=== PATIENT | female | born 1945 | race Caucasian/White ===

== ENCOUNTER 2023-06-27 13:26 | Emergency (ER) | payer OTHER ==
[~2023-06-27] VITALS: Ht 160 cm; Wt 60.3 kg
[2023-06-27 14:00] VITALS: BP_SYST 175; PULSE 72; RESP 18; TEMP 97.7; O2SAT 100
[2023-06-27] MEDS ORDERED: DIPH25CA83 PO (17:00)
[2023-06-27 17:17] VITALS: BP_SYST 138; PULSE 81; RESP 20; TEMP 98.4; O2SAT 98
== END 2023-06-27 17:15 | disposition home or self-care (01) ==
LOC: SED 13:26
DX: S00.262A Insect bite (nonvenomous) of left eyelid and periocular area, initial encounter (principal); Z79.899 Other long term (current) drug therapy; W57.XXXA Bitten or stung by nonvenomous insect and other nonvenomous arthropods, initial encounter; Y93.89 Activity, other specified; Y92.89 Other specified places as the place of occurrence of the external cause; Y99.8 Other external cause status
CPT/HCPCS: 70450-TC; 70480; 76376; 99284